=== PATIENT | female | born 1945 | race Caucasian/White ===

== ENCOUNTER → 2017-05-12 | Outpatient (CLI) | payer MEDICARE, BC | LOC: MC.RAD 05-11 08:20 | DX: Z12.31 Encounter for screening mammogram for malignant neoplasm of breast (principal) ==

== ENCOUNTER → 2017-12-01 | Outpatient (CLI) | payer MEDICARE, BC | LOC: COL.RAD 07:59 | DX: I67.82 Cerebral ischemia (principal); G31.9 Degenerative disease of nervous system, unspecified; H91.8X2 Other specified hearing loss, left ear | CPT/HCPCS: A9585 ==

== ENCOUNTER 2022-02-25 10:01 | Inpatient (IN) | payer MEDICARE, BC ==
[~2022-02-25] VITALS: Ht 167.6 cm; Wt 100.0 kg
[2022-02-25 11:07] LABS: BILIRUBIN,TOTAL 0.4 mg/dL (0.2-1.2); CALCIUM 9.5 mg/dL (8.4-10.2); CREATININE, serum 0.75 mg/dL (0.57-1.11); TOTAL PROTEIN 6.2 gm/dL (6.2-8.1)
[2022-02-25 11:12] LABS: BASO # 0.1 K/mm3 (0.0-0.2); BASO % 0.6 % (0.0-2.0); EOS # 0.3 K/mm3 (0.0-0.7); EOS % 2.1 % (0.0-4.0); GRAN # 10.7 K/mm3 (1.4-6.5); GRAN % 69.5 % (42.2-75.2); HEMATOCRIT 43.7 % (37.0-47.0); HEMOGLOBIN 13.6 g/dl (12.5-16.0); LYMPH # 3.1 K/mm3 (1.2-3.4); LYMPH % 20.1 % (20.0-51.0); MEAN CELL VOLUME 88 fl (80.0-100.0); MEAN CORPUSCULAR HEMOGLOBIN 27 pg (27-31); MEAN CORPUSCULAR HGB CONC 31 g/dl (33.0-37.0); MEAN PLATELET VOLUME 9.9 fl (7.4-10.4); MONO % 6.7 % (1.7-9.3); PLATELET COUNT 300 K/mm3 (130-400); RED BLOOD COUNT 4.98 M/mm3 (4.10-5.30); REDCELL DISTRIBUTION WIDTH-CV 15.1 % (11.5-14.5); TROPONIN-I 0.021 ng/mL (0.00-0.033)
[2022-02-25 12:02] LABS: ARTERIAL BLD GAS O2 SATURATION 94.7 % (92-100); ARTERIAL BLD GAS TCO2 CT 34.1; ARTERIAL BLOOD GAS HCO3 32.4 meq/L (22-26); ARTERIAL BLOOD GAS PCO2 54.3 mmHg (35-45); ARTERIAL BLOOD GAS PO2 72.9 mmHg (80-100); ARTERIAL BLOOD GAS pH 7.39 (7.35-7.45)
[2022-02-25] MEDS ORDERED: ASPIRIN 81M81 MG/TA2 PO (13:08)
[2022-02-25] MEDS ORDERED: CALCIUM 600MG+D1 TAB PO (13:22)
[2022-02-25] MEDS ORDERED: LOTENSIN 1010 MG/TAB PO (13:22)
[2022-02-25] MEDS ORDERED: [UNRECOGNIZED DRUG - CODE] TOP (13:23)
[2022-02-25] MEDS ORDERED: ALAVERT10 M1 PO (13:25)
[2022-02-25] MEDS ORDERED: GLUCOPHAGE500 MG/TAB PO (13:26)
[2022-02-25] MEDS ORDERED: MULTI VITAMINS1 TAB PO (13:26)
[2022-02-25] MEDS ORDERED: OMEGA-3 FISH1000 MG PO (13:27)
[2022-02-25] MEDS ORDERED: DITROPAN 5MG TAB5 MG PO (13:27)
[2022-02-25 13:55] VITALS: BP 140/69; PULSE 63; TEMP 98.1
--- NOTE | 2022-02-25 14:21 | NUR ---
PAGED CARDIOLOGY NURSE, JACKELINE. PER LEXUS PATIENT CAN EAT. THIS RN TO PUT DIET ORDER PER SPEECH RECCOMENDATION. LEXUS AND TEAM TO SEE PATIENT AND SPEAK WITH FAMILY LATER ON.
[2022-02-25 15:59] VITALS: BP 149/81; PULSE 69; TEMP 98.4
[2022-02-25 19:39] VITALS: BP 176/71; PULSE 66; TEMP 98.1
--- NOTE | 2022-02-25 22:27 | NUR ---
Shift assessment preformed. Scheduled medications given. Patient currently on 4 L of O2 via nasal cannula, dyspnea upon exertion noted. Patient hypertensive, scheduled BP medications given. Remainder of VSS. Patient A&O. Patient denies any pain, discomfort, SOA, or further needs at this time. Call light in reach.
[2022-02-26] VITALS (25 sets, daily range): BP systolic 13–146; BP diastolic 55–106; PULSE 59–88; TEMP 97.9–98.4
--- NOTE | 2022-02-26 03:58 | NUR ---
Patient has had an uneventful night. Continues to require O2 at 3.5 L via nasal cannula. No s/s of pain, discomfort, SOA, or further needs at this time. VSS. NPO for procedure this AM. Call light in reach.
[2022-02-26 06:44] LABS: BASO # 0.1 K/mm3 (0.0-0.2); BASO % 0.3 % (0.0-2.0); EOS # 0.5 K/mm3 (0.0-0.7); EOS % 3.3 % (0.0-4.0); GRAN # 9.3 K/mm3 (1.4-6.5); GRAN % 64.7 % (42.2-75.2); HEMATOCRIT 41.2 % (37.0-47.0); HEMOGLOBIN 12.5 g/dl (12.5-16.0); LYMPH # 3.5 K/mm3 (1.2-3.4); LYMPH % 24.1 % (20.0-51.0); MEAN CELL VOLUME 92 fl (80.0-100.0); MEAN CORPUSCULAR HEMOGLOBIN 28 pg (27-31); MEAN CORPUSCULAR HGB CONC 30 g/dl (33.0-37.0); MEAN PLATELET VOLUME 10.1 fl (7.4-10.4); MONO % 7.1 % (1.7-9.3); PLATELET COUNT 278 K/mm3 (130-400); REDCELL DISTRIBUTION WIDTH-CV 15.3 % (11.5-14.5)
[2022-02-26 07:08] LABS: ALBUMIN 2.7 gm/dL (3.4-4.8); CALCIUM 8.7 mg/dL (8.4-10.2); CREATININE, serum 0.68 mg/dL (0.57-1.11); MAGNESIUM 2.1 mg/dL (1.6-2.6); PHOSPHOROUS 4.7 mg/dL (2.3-4.7)
--- NOTE | 2022-02-26 07:19 | NUR ---
INFORMED BY EMPLOYEE WE NEED TO TAKE PATIENT DOWN TO EXPRESS UNIT 16BY 730 AM.
--- NOTE | 2022-02-26 09:42 | NUR ---
Report to Nerissa KATE, on medical regarding her BOLIVAR and lexiscan. Pt awake and alert. Denies complaints. Continues on O2 at 3l/nc.
--- NOTE | 2022-02-26 10:40 | NUR ---
INFORMED CARDIOLOGY NURSE JACKELINE PATIENT IS EAGER TO DRINK/EAT. AND WANTS TO KNOW THE PLAN. CARDS STATED PATIENT NPO UNTIL THEY CAN REVIEW AM TESTS, WILL CALL WITH MORE INFO WHEN AVAILABLE.
--- NOTE | 2022-02-26 12:45 | NUR ---
Railroad Track Mechanic met with patient to discuss discharge planning. Patient lives in [place] with her , Rafael (ph#[phone]) who is at bedside. Patient sees Dr. Cervantes for primary care and obtains medications from [facility]. Patient does not have home oxygen, but is requiring it here. Patient does not use any other DME. Patient is independent with ADLS and plans to return home at time of discharge. Patient states she has started DPOA-HC paperwork but has not completed it. Discharge Plan: Home
--- NOTE | 2022-02-26 18:29 | NUR ---
T BAND TO R RADIAL DOWN TO 2CC OF AIR. UPON ASSESNG SIGHT TO TAKE OFF, NOTICED SMALL AMOUNT OF BLOOD AT SIGHT, HOLDING. T ABN DLEFT IN PLACE WITH 2CC. SECOND NURSE, DAKOTAH KATE, OBSERVED WELL. WILL CONT TO MONITOR.
--- NOTE | 2022-02-26 18:40 | NUR ---
BEDSIDE HAND OFF GIVEN. PATIENT RADIAL SIGHT VIEWED WITH NIGHT RN. 2CC AIR STILL IN TBAND. NO INCREASE IN BLOOD BY CATH SITE. NIGHT RN TO CONTINUE MONITORING AND CARE. PATIENT RESTING IN BED WITH NO COMPLAINTS.
[2022-02-27] VITALS (8 sets, daily range): BP systolic 112–147; BP diastolic 56–80; PULSE 65–72; TEMP 97.9–98.7
--- NOTE | 2022-02-27 03:31 | NUR ---
Shift assessment completed. Scheduled medications given. Post op completed. VSS. Radial band taken off, no s/s of complications at this time. Site is soft and free from hematoma. Patient currently requring 1 L of O2 via nasal cannula. Denies any pain, discomfort, SOA, or further needs at this time. Call light in reach.
--- NOTE | 2022-02-27 04:57 | NUR ---
JOSSELINE HANSON CONTACTED REGARDING POSITIVE BLOOD CX.
[2022-02-27 06:25] LABS: BASO # 0.1 K/mm3 (0.0-0.2); BASO % 0.4 % (0.0-2.0); EOS # 0.4 K/mm3 (0.0-0.7); EOS % 2.8 % (0.0-4.0); GRAN # 9.3 K/mm3 (1.4-6.5); GRAN % 68.3 % (42.2-75.2); HEMATOCRIT 39.5 % (37.0-47.0); HEMOGLOBIN 12.3 g/dl (12.5-16.0); LYMPH # 2.7 K/mm3 (1.2-3.4); LYMPH % 19.7 % (20.0-51.0); MEAN CELL VOLUME 89 fl (80.0-100.0); MEAN CORPUSCULAR HEMOGLOBIN 28 pg (27-31); MEAN CORPUSCULAR HGB CONC 31 g/dl (33.0-37.0); MEAN PLATELET VOLUME 10.3 fl (7.4-10.4); MONO # 1.1 K/mm3 (0.1-0.6); MONO % 8.2 % (1.7-9.3); PLATELET COUNT 260 K/mm3 (130-400); RED BLOOD COUNT 4.45 M/mm3 (4.10-5.30); REDCELL DISTRIBUTION WIDTH-CV 15.1 % (11.5-14.5)
[2022-02-27 06:48] LABS: ALBUMIN 2.7 gm/dL (3.4-4.8); CALCIUM 8.7 mg/dL (8.4-10.2); CREATININE, serum 0.68 mg/dL (0.57-1.11); MAGNESIUM 2.1 mg/dL (1.6-2.6); POTASSIUM 3.7 mmol/L (3.5-4.5)
--- NOTE | 2022-02-27 09:46 | NUR ---
Initial visit; Patient very anxious and worried about her health along with being impatient with everyone keeping her from going home. Clay Temperer spoke with the patient about her [employer] and giving it all over to God and then not taking it back. It is luba that gets us through, she says she knows this she just can't seem to let go and let God handle everything. Clay Temperer wished her well and offered God's blessings.
--- NOTE | 2022-02-27 21:51 | NUR ---
BEDSIDE SHIFT REPORT RECEIVED FROM RN. PT CURRENTLY RESTING IN BED. NO C/O PAIN OR DISCOMFORT AT THIS TIME. LINES RUNNING ACCORDING TO REPORT (SEE DRIP FLOW SHEET). VSS.
[2022-02-28 03:53] VITALS: BP 126/54; PULSE 77; TEMP 98.1
[2022-02-28 07:19] LABS: BASO # 0.1 K/mm3 (0.0-0.2); BASO % 0.5 % (0.0-2.0); EOS # 0.5 K/mm3 (0.0-0.7); EOS % 3.4 % (0.0-4.0); GRAN # 9.1 K/mm3 (1.4-6.5); GRAN % 63.8 % (42.2-75.2); HEMATOCRIT 41.5 % (37.0-47.0); LYMPH # 3.5 K/mm3 (1.2-3.4); LYMPH % 24.3 % (20.0-51.0); MEAN CELL VOLUME 89 fl (80.0-100.0); MEAN CORPUSCULAR HEMOGLOBIN 28 pg (27-31); MEAN CORPUSCULAR HGB CONC 31 g/dl (33.0-37.0); MEAN PLATELET VOLUME 9.7 fl (7.4-10.4); MONO # 1.1 K/mm3 (0.1-0.6); MONO % 7.5 % (1.7-9.3); PLATELET COUNT 276 K/mm3 (130-400); RED BLOOD COUNT 4.69 M/mm3 (4.10-5.30); REDCELL DISTRIBUTION WIDTH-CV 15.2 % (11.5-14.5)
[2022-02-28 07:39] VITALS: BP 141/69; PULSE 71; TEMP 98.1
[2022-02-28 07:42] LABS: ALBUMIN 2.9 gm/dL (3.4-4.8); CALCIUM 8.7 mg/dL (8.4-10.2); CREATININE, serum 0.75 mg/dL (0.57-1.11); MAGNESIUM 2.2 mg/dL (1.6-2.6); PHOSPHOROUS 4.1 mg/dL (2.3-4.7); POTASSIUM 3.7 mmol/L (3.5-4.5)
--- NOTE | 2022-02-28 10:03 | NUR ---
PT SPO2 ON ROOM AIR 84% AT REST. O2 BACK ON @ 2 LPM.
[2022-02-28] MEDS ORDERED: OXYGEN NASAL.CANN (10:42)
[2022-02-28] MEDS ORDERED: PROVENTIL0.09 MG/A1 IH (10:50)
[2022-02-28 11:33] VITALS: BP 124/71; PULSE 71; TEMP 99.2
--- NOTE | 2022-02-28 13:15 | NUR ---
It Solutions Architect attended clinical rounds with the team and patient to discharge home today. Patient will need home oxygen set up. SW met with patient and presented the IM form. Patient verbalized understanding and provided signature. SW placed form in chart and provided copy to patient. SW discussed home oxygen set up and reviewed local DME options. Patient selected [facility]. LISSETH contacted [facility] and faxed referral with orders. Oxygen supplies to be delivered today. Discharge Plan: Home with home oxygen
--- NOTE | 2022-02-28 13:20 | NUR ---
PATIENT TAKEN DOWN STAIRS VIA WHEELCHAIR. OXYGEN TANK ON AND WOKRING. PATIENT ASSISTED INTO BACK OF [facility]. GONZALEZ LEFT IN [place] CONDITION IN THE CARE OF HER .
== END 2022-02-28 14:08 | disposition home or self-care (01) | DRG 193 ==
LOC: COL.ER 10:01 → MEDICAL 11:58
PROVIDERS: Emergency Medicine; ADMIT Internal Medicine
PROC: 4A023N7 Measurement of Cardiac Sampling and Pressure, Left Heart, Percutaneous Approach (ICD-10-PCS; principal; 2022-02-26)
PROC: B2111ZZ Fluoroscopy of Multiple Coronary Arteries using Low Osmolar Contrast (ICD-10-PCS; 2022-02-26)
DX: J18.9 Pneumonia, unspecified organism (principal); J96.01 Acute respiratory failure with hypoxia; I50.20 Unspecified systolic (congestive) heart failure; E11.9 Type 2 diabetes mellitus without complications; F17.210 Nicotine dependence, cigarettes, uncomplicated; Z20.822 Contact with and (suspected) exposure to COVID-19; D72.829 Elevated white blood cell count, unspecified; E78.5 Hyperlipidemia, unspecified; I25.10 Atherosclerotic heart disease of native coronary artery without angina pectoris; I11.0 Hypertensive heart disease with heart failure; I35.0 Nonrheumatic aortic (valve) stenosis; I34.0 Nonrheumatic mitral (valve) insufficiency; M19.90 Unspecified osteoarthritis, unspecified site; Z90.89 Acquired absence of other organs; Z79.82 Long term (current) use of aspirin; Z79.84 Long term (current) use of oral hypoglycemic drugs; Z88.8 Allergy status to other drugs, medicaments and biological substances; Z23 Encounter for immunization
CPT/HCPCS: 99239; A9284; A9500; C1769; J0696; J1644; J2250; J2543; J2704; J2785; J3010; Q9967

== ENCOUNTER 2022-07-28 12:06 | Outpatient (RCR) | payer MEDICARE, BC ==
[~2022-07-28 12:06] MED LIST: ALAVERT10 M1 PO; ASPIRIN 81M81 MG/TA2 PO; CALCIUM 600MG+D1 TAB PO; DITROPAN 5MG TAB5 MG PO; GLUCOPHAGE500 MG/TAB PO; LOTENSIN 1010 MG/TAB PO; MULTI VITAMINS1 TAB PO; OMEGA-3 FISH1000 MG PO; OXYGEN NASAL.CANN; PROVENTIL0.09 MG/A1 IH; [UNRECOGNIZED DRUG - CODE] TOP
== END 2022-07-29 | disposition home or self-care (01) ==
LOC: COL.CR
DX: Z48.812 Encounter for surgical aftercare following surgery on the circulatory system (principal); Z95.2 Presence of prosthetic heart valve

== ENCOUNTER 2022-08-25 11:33 | Outpatient (RCR) | payer MEDICARE, BC | END 2022-08-26 | disposition home or self-care (01) | LOC: COL.CR | DX: Z48.812 Encounter for surgical aftercare following surgery on the circulatory system (principal); Z95.2 Presence of prosthetic heart valve ==

== ENCOUNTER → 2022-09-26 | Outpatient (RCR) | payer MEDICARE, BC | END | disposition home or self-care (01) | LOC: COL.CR | DX: Z48.812 Encounter for surgical aftercare following surgery on the circulatory system (principal); Z95.2 Presence of prosthetic heart valve ==

== ENCOUNTER 2022-09-28 22:02 | Outpatient (RCR) | payer MEDICARE, BC | END 2022-09-29 15:12 | disposition home or self-care (01) | LOC: COL.CR 22:02 | DX: Z48.812 Encounter for surgical aftercare following surgery on the circulatory system (principal); Z95.2 Presence of prosthetic heart valve ==

== ENCOUNTER 2023-07-16 11:27 | Day surgery (SDC) | payer MEDICARE, BC ==
[2023-07-16] VITALS (10 sets, daily range): BP systolic 102–168; BP diastolic 52–78; PULSE 54–71; TEMP 98.3
[~2023-07-16] VITALS: Ht 167.6 cm; Wt 100.9 kg
[2023-07-16] MEDS ORDERED: 1/2 NS 1,000 ML IV SCH (11:45)
[2023-07-16 12:01] LABS: HEMATOCRIT 43.5 % (37.0-47.0); HEMOGLOBIN 14.2 g/dl (12.5-16.0); MEAN CELL VOLUME 88 fl (80.0-100.0); MEAN CORPUSCULAR HEMOGLOBIN 29 pg (27-31); MEAN CORPUSCULAR HGB CONC 33 g/dl (33.0-37.0); MEAN PLATELET VOLUME 9.8 fl (7.4-10.4); PLATELET COUNT 254 K/mm3 (130-400); RED BLOOD COUNT 4.97 M/mm3 (4.10-5.30); REDCELL DISTRIBUTION WIDTH-CV 13.4 % (11.5-14.5)
[2023-07-16 12:14] LABS: CALCIUM 9.6 mg/dL (8.4-10.2); CREATININE, serum 0.93 mg/dL (0.57-1.11); POTASSIUM 4.6 mmol/L (3.5-4.5)
[2023-07-16 12:16] LABS: PROTHROMBIN TIME 10.6 SECONDS (9.7-12.8)
[2023-07-16 12:19] LABS: PARTIAL THROMBOPLASTIN TIME 30.2 SECONDS (26.0-37.0)
[2023-07-16] MEDS ORDERED: LASIX 40MG TABL40 MG PO (12:19)
[2023-07-16] MEDS ORDERED: K-DUR20 MEQ PO (12:22)
[2023-07-16] MEDS ORDERED: EPA FISH OIL1 SGL PO (12:23)
[2023-07-16] MEDS ORDERED: [UNRECOGNIZED DRUG - OTHER] PO (12:25)
--- NOTE | 2023-07-16 14:16 | NUR ---
Initial visit; Patient thanked Veneer Taper for coming in when she arrived and offering Spiritual Care. Veneer Taper offered encouragement and prayer prior to her surgical procedure and wished her well mentioning to her that she is in good hands with Dr. Valero.
--- NOTE | 2023-07-16 14:53 | NUR ---
SEE MERGE DOCUMENTATION FOR MEDICATION ADMINISTRATION AND INTRA/POST PROCEDURE SEDATION ASSESSMETNST.
[2023-07-16] MEDS ORDERED: Midazolam 2 MG/2 ML VIAL IV SCH (15:28)
[2023-07-16] MEDS ORDERED: fentaNYL 50 MCG/ML 2 ML VIAL IV SCH (15:29)
[2023-07-16] MEDS ORDERED: Heparin 1,000 UNITS/ML 10 ML Multi-Dose VIAL IV SCH (15:30)
[2023-07-16] MEDS ORDERED: Nitroglycerin 100 MCG/ML (Cath Lab) 10 ML VIAL IA SCH (15:31)
[2023-07-16] MEDS ORDERED: Verapamil 2.5 MG/ML 2 ML VIAL IV SCH (15:32)
[2023-07-16] MEDS ORDERED: Iohexol 350 - 100 ML VIAL IA ONE (15:34)
[2023-07-16] MEDS ORDERED: TOPROL XL 25MG25 MG PO (15:35)
--- NOTE | 2023-07-16 18:32 | NUR ---
Pt ambulated to EU10 with a steady gait, accompanied by their . Scheduled for a heart cath. EKG done. IV started to the L AC 20g, labs drawn. Consent for the heart cath signed. Pt was taken to the cathode washer for the procedure. Post procedure the pt came back to EU10. Right radial site assessed at time of arrival. No bleeding at that time. Food and drinks were offered to the pt, they accepted a coffee. Their brought them food later on. Pt was bed rest for 2 hrs. At the start of hr 3 the pt got up to the restroom and air was taken out of the band. 2mls of air was taken out about every 15 mins. Once all the air was released the right wrist was assessed again for bleeding. No bleeding visualized, a band-aid was placed over the right radial site. The deflated TR band was reapplied as a reminder to limit extermity use. Discharge education and information was given to the pt. No questions at this time. The pt exited the unit by wheelchair to husbands car.
== END 2023-07-16 18:35 | disposition home or self-care (01) ==
LOC: COL.CAR 11:27
PROVIDERS: Internal Medicine Cardiovascular Disease
DX: I42.8 Other cardiomyopathies (principal); I25.10 Atherosclerotic heart disease of native coronary artery without angina pectoris
CPT/HCPCS: J1644; J2250; J3010; Q9967